=== PATIENT | male | born 1990 | race Caucasian/White ===

== ENCOUNTER 2020-07-15 10:18 | Emergency (ER) | payer OTHER ==
[2020-07-15 10:27] VITALS: BP 120/84; PULSE 78; TEMP 98.2; BMI 28.4
[2020-07-15] MEDS ORDERED: PENICILLIN G BENZATHINE 1,200,000 UNIT/2 ML PFS IM ONE ×2 (11:04→11:09)
[2020-07-15] MEDS ORDERED: DEXAMETHASONE LIQUID 0.5 MG/5 ML PO ONE (11:04)
[2020-07-15] MEDS ORDERED: DEXAMETHASONE SOD PHOSPHATE 10 MG/1 ML VIAL ONE (11:10)
== END 2020-07-15 12:20 | disposition home or self-care (01) ==
LOC: JER 10:18 → JERFT 10:18
DX: J03.90 Acute tonsillitis, unspecified (principal)
CPT/HCPCS: 87070; 87880; 99284-25

== ENCOUNTER 2020-08-22 11:47 | Emergency (ER) | payer OTHER ==
[2020-08-22 12:09] VITALS: BP 123/65; PULSE 98; TEMP 98.2; BMI 28.1
== END 2020-08-22 13:11 | disposition home or self-care (01) ==
LOC: JERFT 11:47
DX: S62.635A Displaced fracture of distal phalanx of left ring finger, initial encounter for closed fracture (principal)
CPT/HCPCS: 73140-TC-LT-FY; 99283-25

== ENCOUNTER 2020-12-20 13:20 | Emergency (ER) | payer OTHER ==
[2020-12-20 13:27] VITALS: BP 127/81; PULSE 84; TEMP 98.5; BMI 28.1
== END 2020-12-20 13:56 | disposition home or self-care (01) ==
LOC: JERFT 13:20
DX: Z76.0 Encounter for issue of repeat prescription (principal)
CPT/HCPCS: 99281-25

== ENCOUNTER 2021-03-25 09:06 | Emergency (ER) | payer OTHER ==
[2021-03-25 09:20] VITALS: BP 112/69; PULSE 88; TEMP 98; BMI 27.5
[2021-03-25 11:06] LABS: BASO % 0.5 % (0-2.0); EOS % 0.3 % (0-4.5); LYMPH % 20.1 % (8-40); MCH 32.1 pg (25.7-33.7); MCHC 34.7 g/dl (32.0-35.9); MEAN CELL VOLUME 92.6 fl (80-96); MEAN PLT VOLUME 7.9 fl (7.5-11.1); MONO % 8.1 % (3.8-10.2); PLATELET COUNT 259 10^3/uL (134-434); RBC 4.97 M/mm3 (4.00-5.60); RDW 12.5 % (11.9-15.9); WHITE BLOOD COUNT 13.3 K/mm3 (4.0-10.0)
[2021-03-25 11:28] LABS: ALBUMIN 4.2 g/dl (3.4-5.0); BLOOD UREA NITROGEN 10.2 mg/dL (7-18); CALCIUM 9.1 mg/dL (8.5-10.1)
[2021-03-25 11:30] LABS: CREATININE 1.1 mg/dL (0.55-1.3)
[2021-03-25 11:33] LABS: BILIRUBIN,TOTAL 0.3 mg/dL (0.2-1); TOT PROT 7.8 g/dl (6.4-8.2)
== END 2021-03-25 14:18 | disposition home or self-care (01) ==
LOC: JER 09:06
DX: R22.31 Localized swelling, mass and lump, right upper limb (principal)
CPT/HCPCS: 36415; 71046-TC-FY; 73070-TC-RT-FY; 76705-TC; 80053; 83690; 85025; 99284-25